=== PATIENT | male | born 1985 | race Caucasian/White ===

== ENCOUNTER 2016-11-14 03:26 | Inpatient (IN) | payer SELFPAY ==
[~2016-11-14] VITALS: Ht 167.6 cm; Wt 82.6 kg
[2016-11-14] VITALS (16 sets, daily range): BP systolic 112–142; BP diastolic 58–87; PULSE 64–111; RESP 16–24; TEMP 98.5–99.6; O2SAT 95–100
[2016-11-14] MEDS ORDERED: SODIUM CHLOR 0.9% 1000 ML INJ 1,000 ML IV SCH (03:47)
[2016-11-14] MEDS ORDERED: SODIUM CHLORIDE 0.9% FLUSH 10 ML FLUSH IVF PRN ×3 (04:00→04:45)
[2016-11-14] MEDS ORDERED: LIDOCAINE HCL 1% PF 30 ML VIAL INFIL ONE (04:00)
[2016-11-14] MEDS ORDERED: TETANUS/DIPHTHERIA TOXOID ADULT 0.5 ML VIAL IM ONE (04:00)
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
[2016-11-14] MEDS ORDERED: ONDANSETRON HCL 4 MG/2 ML VIAL IVP ONE (04:45)
[2016-11-14] MEDS ORDERED: ceFAZolin 2 GM PREMIX 50 ML IV ONE (04:45)
[2016-11-14 04:57] LABS: AUTOMATED NEUTROPHIL # 4.5 TH/MM3 (1.8-7.7); BASOPHIL % 0.5 % (0.0-2.0); EOSINOPHIL # 0.2 TH/MM3 (0-0.4); EOSINOPHIL % 2.1 % (0.0-4.0); HEMATOCRIT 41.7 % (39.0-51.0); HEMO FLAGS DIFF FINAL; LYMPH % 37.9 % (9.0-44.0); LYMPHOCYTE # 3.4 TH/MM3 (1.0-4.8); MEAN CELL VOLUME 89.7 FL (80.0-100.0); MEAN CORPUSCULAR HEMOGLOBIN 31.9 PG (27.0-34.0); MEAN CORPUSCULAR HGB CONC 35.5 % (32.0-36.0); MONO % 9.8 % (0.0-8.0); NEUT % 49.7 % (16.0-70.0); PLATELET COUNT 288 TH/MM3 (150-450); RED BLOOD COUNT 4.66 MIL/MM3 (4.50-5.90); RED CELL DISTRIBUTION WIDTH 12.9 % (11.6-17.2)
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
[2016-11-14 05:25] LABS: BICARBONATE 21.8 MEQ/L (21.0-32.0); POTASSIUM 3.3 MEQ/L (3.5-5.1)
[2016-11-14 05:41] LABS: APTT (PATIENT) 25.3 SEC (24.3-30.1); PROTHROMBIN TIME - PATIENT 10.7 SEC (9.8-11.6)
[2016-11-14] MEDS ORDERED: MISCELLANEOUS NURSING INFORMATION XX SCH (08:30)
[2016-11-14] MEDS ORDERED: SODIUM CHLORIDE 0.9% FLUSH 10 ML FLUSH IV FLUSH PRN (08:30)
[2016-11-14] MEDS ORDERED: CHLORHEXIDINE GLUCONATE 2 % 1 PACK (2 CLOTHS) TOP PRN (08:30)
[2016-11-14] MEDS: BACITRACIN TOP OINT 15 GM TUBE TOP SCH ×2 (09:00→20:39)
[2016-11-14] MEDS ORDERED: ENALAPRILAT 1.25 MG/ML VIAL IV PRN (09:00)
[2016-11-14] MEDS: SODIUM CHLORIDE 0.9% FLUSH 10 ML FLUSH IV FLUSH SCH ×2 (09:00→19:30)
[2016-11-14] MEDS: DOCUSATE SODIUM 100 MG CAP PO SCH ×2 (09:00→19:28)
[2016-11-14] MEDS: levETIRAcetam INJ 500 MG in SODIUM CHLORIDE 0.9% INJ 100 ML IV SCH ×2 (09:30→19:30)
--- NOTE | 2016-11-14 10:19 | PD ---
Physical Exam Time Seen by Provider: 09:00 Narrative I repaired the laceration to the mid left forehead. Data Data Orders Basic Metabolic Panel (Bmp) (11/14/16 03:47) Complete Blood Count With Diff (11/14/16 03:47) Prothrombin Time / Inr (Pt) (11/14/16 03:47) Act Partial Throm Time (Ptt) (11/14/16 03:47) Type And Screen (11/14/16 03:47) Alcohol (Ethanol) (11/14/16 03:47) Ct Brain W/O Iv Contrast(Rout) (11/14/16 03:47) Ct Cerv Spine W/O Contrast (11/14/16 03:47) Iv Access Insert/Monitor (11/14/16 03:47) Ecg Monitoring (11/14/16 03:47) Oximetry (11/14/16 03:47) Oxygen Administration (11/14/16 03:47) Sodium Chlor 0.9% 1000 Ml Inj (Ns 1000 M (11/14/16 03:47) Sodium Chloride 0.9% Flush (Ns Flush) (11/14/16 04:00) Lidocaine Pf 1% Inj (Xylocaine-Mpf 1% In (11/14/16 04:00) Tetanus/Diphtheria Tox Adult (Tetanus/Di (11/14/16 04:00) Remove Backboard (11/14/16 03:47) Ct Facial Bones W/O Iv Cont (11/14/16 ) Oxygen Administration (11/14/16 04:33) Cefazolin 2 Gm Premix (Ancef 2 Gm Premix (11/14/16 04:45) Ondansetron Inj (Zofran Inj) (11/14/16 04:45) Sodium Chloride 0.9% Flush (Ns Flush) (11/14/16 04:45) Ice/Cold Pack (11/14/16 04:33) Admit Order (Ed Use Only) (11/14/16 ) ^ Saline Lock (11/14/16 04:42) Resp Oxygen Joe C Titrat 1-4 L (11/14/16 ) Notify Dr: Other (11/14/16 04:42) Sodium Chloride 0.9% Flush (Ns Flush) (11/14/16 09:00) Sodium Chloride 0.9% Flush (Ns Flush) (11/14/16 04:45) Labs Laboratory Tests Test 11/14/16 03:45 White Blood Count 9.0 TH/MM3 Red Blood Count 4.66 MIL/MM3 Hemoglobin 14.8 GM/DL Hematocrit 41.7 % Mean Corpuscular Volume 89.7 FL Mean Corpuscular Hemoglobin 31.9 PG Mean Corpuscular Hemoglobin 35.5 % Concent Red Cell Distribution Width 12.9 % Platelet Count 288 TH/MM3 Mean Platelet Volume 8.9 FL Neutrophils (%) (Auto) 49.7 % Lymphocytes (%) (Auto) 37.9 % Monocytes (%) (Auto) 9.8 % Eosinophils (%) (Auto) 2.1 % Basophils (%) (Auto) 0.5 % Neutrophils # (Auto) 4.5 TH/MM3 Lymphocytes # (Auto) 3.4 TH/MM3 Monocytes # (Auto) 0.9 TH/MM3 Eosinophils # (Auto) 0.2 TH/MM3 Basophils # (Auto) 0.0 TH/MM3 CBC Comment DIFF FINAL Differential Comment Prothrombin Time 10.7 SEC Prothromb Time International 1.0 RATIO Ratio Activated Partial 25.3 SEC Thromboplast Time Sodium Level 141 MEQ/L Potassium Level 3.3 MEQ/L Chloride Level 105 MEQ/L Carbon Dioxide Level 21.8 MEQ/L Anion Gap 14 MEQ/L Blood Urea Nitrogen 10 MG/DL Creatinine 0.89 MG/DL Estimat Glomerular Filtration 98 ML/MIN Rate Random Glucose 120 MG/DL Calcium Level 8.4 MG/DL Ethyl Alcohol Level 131 MG/DL Blood Type O POSITIVE Antibody Screen NEGATIVE Blood Bank Comment [facility] Supervised Visit with ARYAN: Yes Narrative Course I repaired the laceration to the mid left forehead. See my procedure note for laceration repair. Procedures Procedure Narrative LACERATION LOCATION: Left mid forehead LENGTH: 1-1/2 cm NUMBER OF STITCHES/DENISA: 3 simple interrupted sutures REPAIR: The area of the laceration was prepped with Betadine and sterilely draped. The laceration was infiltrated with 1% lidocaine. The wound was copiously irrigated and explored without evidence of foreign body, tendon injury or neurovascular injury. The wound was closed using 6-0 Prolene. This was a single layer repair. A sterile dressing was applied. The patient was advised to keep the dressing clean and dry. Patient tolerated the procedure well. Diagnosis Primary Impression: Subdural hematoma Additional Impressions: Orbital floor fracture Qualified Code: S02.32XA - Closed fracture of left orbital floor, initial encounter Skull fracture with concussion Qualified Code: S02.91XA - Skull fracture with concussion, closed, initial encounter Anna Biggs [facility] November 14, 2016 10:19
[2016-11-14] MEDS: PANTOPRAZOLE SODIUM 40 MG VIAL IVP SCH (10:30)
[2016-11-14] MEDS: SODIUM CHLOR 0.9% 1000 ML INJ 1,000 ML IV SCH ×2 (11:00→18:21)
[2016-11-14] MEDS: ACETAMINOPHEN 325 MG TAB PO PRN ×2 (11:46→19:30)
[2016-11-14] MEDS: ONDANSETRON HCL 4 MG/2 ML VIAL IV PRN ×2 (11:53→23:30)
[2016-11-14] MEDS: MULTIVITAMIN INJ 10 ML, THIAMINE INJ 100 MG, FOLIC ACID INJ 1 MG in SODIUM CHLORID 0.9%... IV SCH (12:00)
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
[2016-11-14] MEDS: MAGNESIUM HYDROXIDE SUSP 30 ML CUP PO SCH (19:30)
[2016-11-15] VITALS (12 sets, daily range): BP systolic 111–135; BP diastolic 66–84; PULSE 49–86; RESP 18–20; TEMP 98.9–99.8; O2SAT 95–97
[2016-11-15] MEDS: CHLORHEXIDINE GLUCONATE 2 % 1 PACK (2 CLOTHS) TOP SCH (00:43)
[2016-11-15] MEDS: ACETAMINOPHEN 325 MG TAB PO PRN ×4 (00:50→21:34)
[2016-11-15 05:17] LABS: AUTOMATED NEUTROPHIL # 9.2 TH/MM3 (1.8-7.7); BASOPHIL % 0.1 % (0.0-2.0); HEMATOCRIT 38.9 % (39.0-51.0); HEMO FLAGS DIFF FINAL; LYMPH % 8.5 % (9.0-44.0); MEAN CELL VOLUME 89.1 FL (80.0-100.0); MEAN CORPUSCULAR HEMOGLOBIN 31.7 PG (27.0-34.0); MEAN CORPUSCULAR HGB CONC 35.6 % (32.0-36.0); MONO % 10.3 % (0.0-8.0); NEUT % 81.1 % (16.0-70.0); PLATELET COUNT 206 TH/MM3 (150-450); RED BLOOD COUNT 4.37 MIL/MM3 (4.50-5.90); RED CELL DISTRIBUTION WIDTH 12.9 % (11.6-17.2); WHITE BLOOD COUNT 11.4 TH/MM3 (4.0-11.0)
[2016-11-15] MEDS: SODIUM CHLOR 0.9% 1000 ML INJ 1,000 ML IV SCH (05:24)
[2016-11-15 05:27] LABS: ALT (GPT) 23 U/L (12-78); ANION GAP 9 MEQ/L (5-15); AST (GOT) 19 U/L (15-37); BICARBONATE 25.2 MEQ/L (21.0-32.0); BLOOD UREA NITROGEN 8 MG/DL (7-18); CHLORIDE 105 MEQ/L (98-107); GLOMERULAR FILTRATION RATE 126 ML/MIN (>89); POTASSIUM 3.8 MEQ/L (3.5-5.1); SODIUM (NA) 139 MEQ/L (136-145)
[2016-11-15 05:29] LABS: ALKALINE PHOSPHATASE 66 U/L (45-117); TOTAL BILIRUBIN ADULT 0.6 MG/DL (0.2-1.0)
--- NOTE | 2016-11-15 06:52 | RADRPT ---
EXAM DATE/TIME: 11/15/2016 04:58 [place] COMPARISON: CT BRAIN W/O CONTRAST, November 14, 2016, 4:06. INDICATIONS : Follow up bleed. RADIATION DOSE: 56.35 CTDIvol (mGy) MEDICAL HISTORY : None SURGICAL HISTORY : None. ENCOUNTER: Subsequent ACUITY: 1 day PAIN SCALE: 0/10 LOCATION: cranial TECHNIQUE: Multiple contiguous axial images were obtained of the head. Using automated exposure control and adj ustment of the mA and/or kV according to patient size, radiation dose was kept as low as reasonably a chievable to obtain optimal diagnostic quality images. FINDINGS: Evolving left frontal and temporal contusions show interval increase in associated edema. Subarachnoi d and subdural blood is similar in volume to previous area slight subfalcine shift is stable. The rig ht hemisphere remains benign in appearance. Posterior fossa structures are stable and benign. CONCLUSION: Evolving areas of left hemispheric intracranial injury. No new acute findings. Fabricio Barriga MD on November 15, 2016 at 6:47 Board Certified Radiologist. This report was verified electronically.
[2016-11-15] MEDS: ONDANSETRON HCL 4 MG/2 ML VIAL IV PRN (08:17)
[2016-11-15] MEDS: PANTOPRAZOLE SODIUM 40 MG VIAL IVP SCH (08:17)
[2016-11-15] MEDS: SODIUM CHLORIDE 0.9% FLUSH 10 ML FLUSH IV FLUSH SCH ×2 (08:19→21:34)
[2016-11-15] MEDS: DOCUSATE SODIUM 100 MG CAP PO SCH ×2 (08:19→21:00)
[2016-11-15] MEDS: levETIRAcetam INJ 500 MG in SODIUM CHLORIDE 0.9% INJ 100 ML IV SCH ×2 (08:19→21:34)
[2016-11-15] MEDS: BACITRACIN TOP OINT 15 GM TUBE TOP SCH ×2 (08:20→21:34)
[2016-11-15] MEDS: oxyCODONE/ACETAMINOPHEN 5 MG/325 MG TAB PO PRN ×3 (09:50→15:49)
[2016-11-15] MEDS ORDERED: LACTULOSE SYRUP 20 GM/30 ML CUP PO ONE (10:00)
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
[2016-11-15] MEDS: MULTIVITAMIN INJ 10 ML, THIAMINE INJ 100 MG, FOLIC ACID INJ 1 MG in SODIUM CHLORID 0.9%... IV SCH (12:38)
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
[2016-11-15] MEDS: MAGNESIUM HYDROXIDE SUSP 30 ML CUP PO SCH (21:00)
[2016-11-16] VITALS (11 sets, daily range): BP systolic 114–134; BP diastolic 60–79; PULSE 47–72; RESP 17–19; TEMP 98.4–99.1; O2SAT 96–100
[2016-11-16 01:01] LABS: AMPHETAMINE, URINE NEG (NEG); BARBITURATES, URINE NEG (NEG); COCAINE, URINE NEG (NEG)
[2016-11-16] MEDS: CHLORHEXIDINE GLUCONATE 2 % 1 PACK (2 CLOTHS) TOP SCH (04:00)
[2016-11-16 04:41] LABS: AUTOMATED NEUTROPHIL # 7.6 TH/MM3 (1.8-7.7); BASOPHIL % 0.1 % (0.0-2.0); EOSINOPHIL % 0.1 % (0.0-4.0); HEMATOCRIT 39.2 % (39.0-51.0); HEMO FLAGS DIFF FINAL; LYMPH % 15.4 % (9.0-44.0); LYMPHOCYTE # 1.6 TH/MM3 (1.0-4.8); MEAN CELL VOLUME 90.3 FL (80.0-100.0); MEAN CORPUSCULAR HEMOGLOBIN 31.1 PG (27.0-34.0); MEAN CORPUSCULAR HGB CONC 34.4 % (32.0-36.0); MONO % 9.9 % (0.0-8.0); NEUT % 74.5 % (16.0-70.0); PLATELET COUNT 196 TH/MM3 (150-450); RED BLOOD COUNT 4.34 MIL/MM3 (4.50-5.90); RED CELL DISTRIBUTION WIDTH 12.8 % (11.6-17.2); WHITE BLOOD COUNT 10.2 TH/MM3 (4.0-11.0)
[2016-11-16 04:49] LABS: ALT (GPT) 21 U/L (12-78); ANION GAP 6 MEQ/L (5-15); AST (GOT) 19 U/L (15-37); BLOOD UREA NITROGEN 7 MG/DL (7-18); CHLORIDE 101 MEQ/L (98-107); GLOMERULAR FILTRATION RATE 132 ML/MIN (>89); POTASSIUM 3.9 MEQ/L (3.5-5.1); SODIUM (NA) 135 MEQ/L (136-145)
[2016-11-16 04:50] LABS: ALKALINE PHOSPHATASE 63 U/L (45-117); TOTAL BILIRUBIN ADULT 0.5 MG/DL (0.2-1.0)
[2016-11-16] MEDS: ACETAMINOPHEN 325 MG TAB PO PRN ×2 (04:51→12:23)
[2016-11-16] MEDS: SODIUM CHLORIDE 0.9% FLUSH 10 ML FLUSH IV FLUSH SCH ×2 (07:39→20:05)
[2016-11-16] MEDS: BACITRACIN TOP OINT 15 GM TUBE TOP SCH ×2 (07:39→23:18)
[2016-11-16] MEDS: DOCUSATE SODIUM 100 MG CAP PO SCH ×2 (07:39→20:05)
[2016-11-16] MEDS: PANTOPRAZOLE SODIUM 40 MG VIAL IVP SCH (07:39)
[2016-11-16] MEDS: levETIRAcetam INJ 500 MG in SODIUM CHLORIDE 0.9% INJ 100 ML IV SCH ×2 (07:39→20:05)
[2016-11-16] MEDS: oxyCODONE/ACETAMINOPHEN 5 MG/325 MG TAB PO PRN ×3 (08:01→22:37)
[2016-11-16] MEDS: SODIUM CHLOR 0.9% 1000 ML INJ 1,000 ML IV SCH (09:45)
[2016-11-16] MEDS: MULTIVITAMIN INJ 10 ML, THIAMINE INJ 100 MG, FOLIC ACID INJ 1 MG in SODIUM CHLORID 0.9%... IV SCH (12:09)
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
[2016-11-16] MEDS: MAGNESIUM HYDROXIDE SUSP 30 ML CUP PO SCH (20:05)
[2016-11-17] VITALS (7 sets, daily range): BP systolic 113–142; BP diastolic 65–93; PULSE 50–68; RESP 14–18; TEMP 97.5–99.7; O2SAT 96–98
[2016-11-17] MEDS: SODIUM CHLOR 0.9% 1000 ML INJ 1,000 ML IV SCH ×2 (00:11→19:51)
[2016-11-17] MEDS: oxyCODONE/ACETAMINOPHEN 5 MG/325 MG TAB PO PRN ×2 (03:52→13:25)
[2016-11-17] MEDS: CHLORHEXIDINE GLUCONATE 2 % 1 PACK (2 CLOTHS) TOP SCH (03:59)
[2016-11-17] MEDS: DOCUSATE SODIUM 100 MG CAP PO SCH ×2 (08:40→21:00)
[2016-11-17] MEDS: PANTOPRAZOLE SODIUM 40 MG VIAL IVP SCH (08:40)
[2016-11-17] MEDS: BACITRACIN TOP OINT 15 GM TUBE TOP SCH ×2 (08:41→21:00)
[2016-11-17] MEDS: levETIRAcetam INJ 500 MG in SODIUM CHLORIDE 0.9% INJ 100 ML IV SCH (08:41)
[2016-11-17] MEDS: SODIUM CHLORIDE 0.9% FLUSH 10 ML FLUSH IV FLUSH SCH (08:41)
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
[2016-11-17] MEDS ORDERED: HALOPERIDOL LACTATE 5 MG/ML AMP IV PUSH PRN (16:00)
[2016-11-17] MEDS: MAGNESIUM HYDROXIDE SUSP 30 ML CUP PO SCH (21:00)
[2016-11-18] MEDS: oxyCODONE/ACETAMINOPHEN 5 MG/325 MG TAB PO PRN ×2 (00:11→08:28)
[2016-11-18] MEDS: SODIUM CHLORIDE 0.9% FLUSH 10 ML FLUSH IV FLUSH SCH ×2 (00:13→08:28)
[2016-11-18] MEDS: levETIRAcetam INJ 500 MG in SODIUM CHLORIDE 0.9% INJ 100 ML IV SCH ×2 (00:17→08:28)
[2016-11-18 00:30] VITALS: BP 121/68; PULSE 68; RESP 18; TEMP 97.9; O2SAT 95
[2016-11-18] MEDS: CHLORHEXIDINE GLUCONATE 2 % 1 PACK (2 CLOTHS) TOP SCH (04:00)
[2016-11-18 05:09] VITALS: BP 134/78; PULSE 48; RESP 18; TEMP 97.7; O2SAT 96
[2016-11-18 08:00] VITALS: BP 129/84; PULSE 74; RESP 18; TEMP 98.1; O2SAT 100
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
[2016-11-18] MEDS: DOCUSATE SODIUM 100 MG CAP PO SCH (08:28)
[2016-11-18] MEDS: BACITRACIN TOP OINT 15 GM TUBE TOP SCH (08:28)
[2016-11-18] MEDS: PANTOPRAZOLE SODIUM 40 MG VIAL IVP SCH (08:28)
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
[2016-11-18 12:00] VITALS: BP 137/79; PULSE 64; RESP 18; TEMP 97.7; O2SAT 98
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
== END 2016-11-18 13:12 | disposition left against medical advice (07) | DRG 83 ==
LOC: NEPC 03:26 → NEDA 04:45 → N03B 10:56 → N03A 11-15 17:58 → N05A 11-17 04:30
PROVIDERS: ADMIT Surgery; ATTEND Surgery
PROC: 0HQ1XZZ Repair Face Skin, External Approach (ICD-10-PCS; principal; 2016-11-14)
DX: S06.6X9A Traumatic subarachnoid hemorrhage with loss of consciousness of unspecified duration, initial encounter (principal); R47.01 Aphasia; S02.32XA Fracture of orbital floor, left side, initial encounter for closed fracture; S01.81XA Laceration without foreign body of other part of head, initial encounter; S01.111A Laceration without foreign body of right eyelid and periocular area, initial encounter; S02.19XA Other fracture of base of skull, initial encounter for closed fracture; S06.5X9A Traumatic subdural hemorrhage with loss of consciousness of unspecified duration, initial encounter; Y04.2XXA Assault by strike against or bumped into by another person, initial encounter; Y92.89 Other specified places as the place of occurrence of the external cause; Y99.8 Other external cause status; F19.10 Other psychoactive substance abuse, uncomplicated; F10.120 Alcohol abuse with intoxication, uncomplicated; Y90.6 Blood alcohol level of 120-199 mg/100 ml; Y04.0XXA Assault by unarmed brawl or fight, initial encounter; R40.2410 Glasgow coma scale score 13-15, unspecified time; R45.1 Restlessness and agitation
CPT/HCPCS: 12011; 70450; 70486; 72125; 80048; 80053; 80307; 85025; 85610; 85730; 86850; 86900; 86901; 87641; 90714; 94150; C9113; J0690; J1953; J2405; J3411; J7030; J7040